=== PATIENT | female | born 1950 | race American Indian/Alaskan Native ===

== ENCOUNTER 2017-11-17 13:21 | Emergency (ER) | payer MEDICARE, MEDICAID ==
[~2017-11-17] VITALS: Ht 157.5 cm; Wt 59.7 kg
[~2017-11-17 13:21] MED LIST: ATOR40TA PO; EZET10TA14 PO; LEVO175T7 PO; METH2.5T PO; OXYB5TAB29 PO; PANT-47 PO; PARO40TA PO; VARE0.5T PO
[2017-11-17] MEDS ORDERED: LORazepam 0.5 MG tablet PO PRN (14:05)
[2017-11-17 15:05] LABS: BASOPHILS # (AUTO) 0.1 X10'3 (0-0.2); BASOPHILS % (AUTO) 0.9 % (0-1); EOSINOPHILS # (AUTO) 0.3 X10'3 (0-0.9); EOSINOPHILS % (AUTO) 4.7 % (0-6); HEMATOCRIT 41.5 % (35.0-45.0); HEMOGLOBIN 14.1 g/dl (12.0-16.0); LYMPHOCYTES # (AUTO) 1.8 X10'3 (1.1-4.8); LYMPHOCYTES % (AUTO) 31.5 % (21-51); MEAN CORPUSCULAR HEMOGLOBIN 32.3 PG (27.0-31.0); MEAN CORPUSCULAR VOLUME 94.8 FL (78-98); MEAN PLATELET VOLUME 10.1 FL (7.4-10.4); MONOCYTES # (AUTO) 0.6 X10'3 (0-0.9); MONOCYTES % (AUTO) 9.9 % (2-12); NEUTROPHILS # (AUTO) 3.1 X10'3 (1.8-7.7); PLATELET COUNT 202 X10'3 (140-440); RED BLOOD COUNT 4.38 X10'6 (4.20-5.60); RED CELL DISTRIBUTION WIDTH 13.3 % (11.5-14.5); WHITE BLOOD COUNT 5.8 X10'3 (4.5-11.0)
[2017-11-17 15:19] LABS: ALANINE AMINOTRANSFERASE 49 U/L (12-78); ALBUMIN 3.6 G/DL (3.4-5.0); ANION GAP 4 (8-16); ASPARTATE AMINO TRANSFERASE 21 U/L (10-37); BILIRUBIN,TOTAL 0.5 MG/DL (0.1-1.0); BLOOD UREA NITROGEN 20 MG/DL (7-18); BUN/CREATININE RATIO 33.3 (6.6-38.0); CALCIUM 8.7 MG/DL (8.5-10.1); CHLORIDE 109 MMOL/L (99-107); GLUCOSE 108 MG/DL (70-104); SODIUM 144 MMOL/L (135-145); TOTAL CARBON DIOXIDE 30.6 MMOL/L (24-32); TOTAL PROTEIN 7.1 G/DL (6.4-8.2); eGFR > 90 ML/MIN
[2017-11-17 15:20] LABS: ALKALINE PHOSPHATASE 117 IU/L (46-116); ETHANOL < 0.010 GM/DL (0.0-0.010)
[2017-11-17 15:27] LABS: URINE AMPHETAMINE SCREEN NEGATIVE (Neg); URINE BARBITUATE SCREEN NEGATIVE (Neg); URINE BENZODIAZEPINES SCREEN NEGATIVE (Neg); URINE CANNABINOID SCREEN NEGATIVE (Neg); URINE COCAINE SCREEN NEGATIVE (Neg); URINE METHADONE SCREEN NEGATIVE (Neg); URINE OPIATE SCREEN POSITIVE (Neg); URINE PHENCYCLIDINE SCREEN NEGATIVE (Neg)
[2017-11-17] MEDS ORDERED: ARA20T PO (18:06)
[2017-11-17] MEDS ORDERED: PANT-47 PO (18:06)
[2017-11-17] MEDS ORDERED: MELO-100 PO (18:06)
[2017-11-17] MEDS ORDERED: LEVO150T8 PO (18:06)
[2017-11-17] MEDS ORDERED: NITR0.4T48 SL (18:06)
[2017-11-17] MEDS ORDERED: ATOR20TA PO (18:06)
[2017-11-17] MEDS ORDERED: OXYB5TAB29 PO (18:06)
[2017-11-17] MEDS ORDERED: SPIR25TA3 PO (18:06)
[2017-11-17] MEDS ORDERED: HYDR-3965 PO (18:06)
[2017-11-17 19:50] VITALS: BP 116/64
== END 2017-11-17 19:45 ==
LOC: ER 13:22
DX: R45.851 Suicidal ideations (principal); M06.9 Rheumatoid arthritis, unspecified; Z88.2 Allergy status to sulfonamides
CPT/HCPCS: 36415; 80053; 80305; 80320; 85025; 99285

== ENCOUNTER 2017-11-17 17:06 | Inpatient (IN) | payer MEDICARE, MEDICAID ==
[~2017-11-17] VITALS: Ht 157.5 cm; Wt 49.0 kg
[2017-11-17] MEDS ORDERED: HYDR-3965 PO (18:06)
[2017-11-17] MEDS ORDERED: ARA20T PO (18:06)
[2017-11-17] MEDS ORDERED: MELO-100 PO (18:06)
[2017-11-17] MEDS ORDERED: ATOR20TA PO (18:06)
[2017-11-17] MEDS ORDERED: NITR0.4T48 SL (18:06)
[2017-11-17] MEDS ORDERED: OXYB5TAB29 PO (18:06)
[2017-11-17] MEDS ORDERED: LEVO150T8 PO (18:06)
[2017-11-17] MEDS ORDERED: PANT-47 PO (18:06)
[2017-11-17] MEDS ORDERED: SPIR25TA3 PO (18:06)
[2017-11-17 20:34] VITALS: BP 131/76
[2017-11-17] MEDS ORDERED: nitroGLYCERIN 0.4mg SUBLingual tab SL PRN (20:40)
[2017-11-17] MEDS ORDERED: hydrOXYzine 25 MG tablet PO PRN (20:50)
[2017-11-17] MEDS ORDERED: traZODone 50mg tablet PO PRN (20:50)
[2017-11-18] MEDS ORDERED: acetaminophen 325mg tablet PO PRN (02:50)
[2017-11-18] MEDS ORDERED: magnesium hydroxide 30ml (MOM) UD suspension PO PRN (02:50)
[2017-11-18] MEDS ORDERED: mag hydrox/Alum hydrox/simeth 30ml oral suspension PO PRN (02:50)
[2017-11-18] MEDS: naproxen 500mg tablet PO SCH ×2 (07:39→17:04)
[2017-11-18] MEDS: pantoprazole 40mg Tablet.DR PO SCH (07:39)
[2017-11-18] MEDS: levoTHYROXINE 75mcg tablet PO SCH (07:39)
[2017-11-18 08:00] VITALS: BP 106/54
[2017-11-18] MEDS ORDERED: clonazePAM 0.5mg tablet PO ONE (08:30)
[2017-11-18] MEDS: HYDROcodone/acetaminophen 5mg/325mg tablet PO SCH ×2 (08:45→20:46)
[2017-11-18] MEDS: atorvastatin 20mg tablet PO SCH (08:46)
[2017-11-18] MEDS: spironolactone 25 MG tablet PO SCH (08:47)
[2017-11-18] MEDS: leflunomide 20mg tablet PO SCH (08:47)
[2017-11-18] MEDS: oxybutynin 5mg tablet PO SCH (08:47)
[2017-11-18] MEDS ORDERED: pneumococcal 23-VAL P-sac vacc 25 mcg/0.5ml vial IMVAC ONE (10:00)
[2017-11-18] MEDS: aspirin 81mg tablet.DR PO SCH (16:17)
[2017-11-18 19:00] VITALS: BP 103/50
[2017-11-18] MEDS: traZODone 50mg tablet PO SCH (20:46)
[2017-11-18] MEDS: clonazePAM 0.5mg tablet PO SCH (20:47)
[2017-11-19] MEDS: lisinopril 2.5mg tablet PO SCH (07:20)
[2017-11-19] MEDS: aspirin 81mg tablet.DR PO SCH (07:20)
[2017-11-19] MEDS: leflunomide 20mg tablet PO SCH (07:20)
[2017-11-19] MEDS: clonazePAM 0.5mg tablet PO SCH ×2 (07:20→20:53)
[2017-11-19] MEDS: levoTHYROXINE 75mcg tablet PO SCH (07:20)
[2017-11-19] MEDS: HYDROcodone/acetaminophen 5mg/325mg tablet PO SCH ×2 (07:21→20:54)
[2017-11-19] MEDS: venlafaxine XR 37.5mg cap (Q24H) PO SCH (07:30)
[2017-11-19] MEDS: atorvastatin 20mg tablet PO SCH (07:30)
[2017-11-19] MEDS: spironolactone 25 MG tablet PO SCH (07:30)
[2017-11-19] MEDS: naproxen 500mg tablet PO SCH ×3 (07:30→17:47)
[2017-11-19] MEDS: oxybutynin 5mg tablet PO SCH (07:30)
[2017-11-19] MEDS: pantoprazole 40mg Tablet.DR PO SCH (07:31)
[2017-11-19 07:43] VITALS: BP 110/66
[2017-11-19 19:24] VITALS: BP 99/51
[2017-11-19] MEDS: traZODone 50mg tablet PO SCH (20:53)
[2017-11-20] MEDS: pantoprazole 40mg Tablet.DR PO SCH (07:15)
[2017-11-20] MEDS: levoTHYROXINE 75mcg tablet PO SCH (07:16)
[2017-11-20] MEDS: oxybutynin 5mg tablet PO SCH (07:16)
[2017-11-20] MEDS: atorvastatin 20mg tablet PO SCH (07:16)
[2017-11-20] MEDS: venlafaxine XR 37.5mg cap (Q24H) PO SCH (07:17)
[2017-11-20] MEDS: spironolactone 25 MG tablet PO SCH (07:17)
[2017-11-20] MEDS: leflunomide 20mg tablet PO SCH (07:17)
[2017-11-20] MEDS: clonazePAM 0.5mg tablet PO SCH ×2 (07:18→20:30)
[2017-11-20] MEDS: naproxen 500mg tablet PO SCH ×2 (07:18→17:37)
[2017-11-20] MEDS: aspirin 81mg tablet.DR PO SCH (07:18)
[2017-11-20] MEDS: HYDROcodone/acetaminophen 5mg/325mg tablet PO SCH ×2 (07:18→20:30)
[2017-11-20 07:34] VITALS: BP 102/54
[2017-11-20] MEDS: lisinopril 2.5mg tablet PO SCH (08:00)
[2017-11-20 15:36] VITALS: BP 121/41
[2017-11-20 20:00] VITALS: BP 111/54
[2017-11-20] MEDS: traZODone 50mg tablet PO SCH (20:30)
[2017-11-21] MEDS: pantoprazole 40mg Tablet.DR PO SCH (07:34)
[2017-11-21] MEDS: naproxen 500mg tablet PO SCH (07:34)
[2017-11-21] MEDS: levoTHYROXINE 75mcg tablet PO SCH (07:34)
[2017-11-21 08:00] VITALS: BP 120/68
[2017-11-21] MEDS: spironolactone 25 MG tablet PO SCH (08:18)
[2017-11-21] MEDS: leflunomide 20mg tablet PO SCH (08:18)
[2017-11-21] MEDS: atorvastatin 20mg tablet PO SCH (08:18)
[2017-11-21] MEDS: clonazePAM 0.5mg tablet PO SCH (08:18)
[2017-11-21] MEDS: oxybutynin 5mg tablet PO SCH (08:18)
[2017-11-21] MEDS: HYDROcodone/acetaminophen 5mg/325mg tablet PO SCH (08:18)
[2017-11-21] MEDS: lisinopril 2.5mg tablet PO SCH (08:18)
[2017-11-21] MEDS: aspirin 81mg tablet.DR PO SCH (08:18)
[2017-11-21] MEDS: venlafaxine XR 37.5mg cap (Q24H) PO SCH (08:19)
[2017-11-21] MEDS ORDERED: EFF37.5XRC PO (10:48)
[2017-11-21] MEDS ORDERED: TRAZ-146 PO (10:48)
[2017-11-21] MEDS ORDERED: CLON0.5T4 PO (10:48)
== END 2017-11-21 14:00 | disposition home or self-care (01) | DRG 885 ==
LOC: ADULT MH 17:06
PROVIDERS: ADMIT Psychiatry & Neurology Psychiatry; ATTEND Psychiatry & Neurology Psychiatry
DX: F33.2 Major depressive disorder, recurrent severe without psychotic features (principal); R45.851 Suicidal ideations; F43.21 Adjustment disorder with depressed mood; E03.9 Hypothyroidism, unspecified; I25.10 Atherosclerotic heart disease of native coronary artery without angina pectoris; E78.00 Pure hypercholesterolemia, unspecified; F15.11 Other stimulant abuse, in remission; F41.0 Panic disorder [episodic paroxysmal anxiety]; I25.2 Old myocardial infarction; Z79.899 Other long term (current) drug therapy; Z90.710 Acquired absence of both cervix and uterus; Z95.5 Presence of coronary angioplasty implant and graft; Z23 Encounter for immunization
CPT/HCPCS: 36415; 84443; 87070; 90732; 99285; Q0177

== ENCOUNTER 2021-10-09 17:10 | Emergency (ER) | payer MEDICARE, MEDICAID ==
[~2021-10-09] VITALS: Ht 154.9 cm; Wt 60.0 kg
[~2021-10-09 17:10] MED LIST changes: +ARA20T PO; +ATOR20TA PO; -ATOR40TA PO; +CLON0.5T4 PO; +EFF37.5XRC PO; -EZET10TA14 PO; +HYDR-3965 PO; +LEVO150T8 PO; -LEVO175T7 PO; +MELO-100 PO; -METH2.5T PO; +NITR0.4T48 SL; -PARO40TA PO; +SPIR25TA5 PO; +TRAZ-256 PO; -VARE0.5T PO
[2021-10-09 17:25] VITALS: BP 130/60
== END 2021-10-09 20:05 | disposition left against medical advice (07) ==
LOC: ER 17:11
DX: R05.9 Cough, unspecified (principal); Z53.21 Procedure and treatment not carried out due to patient leaving prior to being seen by health care provider
CPT/HCPCS: 71045

== ENCOUNTER 2022-06-26 18:23 | Emergency (ER) | payer MEDICARE, MEDICAID ==
[~2022-06-26] VITALS: Ht 154.9 cm; Wt 57.7 kg
[2022-06-26 18:30] VITALS: BP 147/54
== END 2022-06-26 22:10 | disposition left against medical advice (07) ==
LOC: ER 18:24
DX: M54.9 Dorsalgia, unspecified (principal); Z53.21 Procedure and treatment not carried out due to patient leaving prior to being seen by health care provider